=== PATIENT | male | born 1980 | race Caucasian/White ===

== ENCOUNTER 2022-09-05 16:25 | Emergency (ER) | payer MEDICAID, SELFPAY ==
[2022-09-05 16:26] VITALS: BP 107/74; PULSE 97; RESP 17; TEMP 36.4; O2SAT 97; BMI 27.8
[2022-09-05 16:29] VITALS: PULSE 119; O2SAT 97
--- NOTE | 2022-09-05 16:31 | HMH.EDSKAF ---
Discharge Plan Disposition Patient Disposition: Home, Self-Care Prescriptions Prescriptions: New clindamycin HCl 150 mg capsule 150 mg PO Q8H 7 Days Qty: 21 0RF No Action divalproex 500 mg tablet,delayed release (DR/EC) 500 mg PO BID cholecalciferol (vitamin D3) 25 mcg (1,000 unit) capsule 25 mcg PO DAILY atorvastatin 10 mg tablet 10 mg PO DAILY benztropine 1 mg tablet 1 mg PO DAILY risperidone 0.5 mg tablet 0.5 mg PO DAILY haloperidol 10 mg tablet 10 mg PO DAILY Clinical Impressions Clinical Impression: Abscess of axilla, right Discharge ED Provider: Dio Howard Skin/Abscess/FB HPI General Stated complaint: abscess to armpit Time Seen by Provider: 09/05/22 16:27 History of Present Illness HPI narrative: 41-year-old male presents with right axilla draining abscess. The patient reports has been present for about 3 to 4 days and is now started draining. He has had these before but this is the worst he has ever had. Patient lists codeine is his only medical allergy Related Data Home Medications Medication Instructions Recorded Confirmed atorvastatin 10 mg tablet 10 mg PO DAILY 12/14/21 12/14/21 benztropine 1 mg tablet 1 mg PO DAILY 12/14/21 12/14/21 cholecalciferol (vitamin D3) 25 25 mcg PO DAILY 12/14/21 12/14/21 mcg (1,000 unit) capsule divalproex 500 mg tablet,delayed 500 mg PO BID 12/14/21 12/14/21 release haloperidol 10 mg tablet 10 mg PO DAILY 12/14/21 12/14/21 risperidone 0.5 mg tablet 0.5 mg PO DAILY 12/14/21 12/14/21 Previous Rx's Medication Instructions Recorded clindamycin HCl 150 mg capsule 150 mg PO Q8H 7 days #21 caps 09/05/22 Allergies Allergy/AdvReac Type Severity Reaction Status Date / Time codeine Allergy Unknown Verified 12/14/21 11:02 Fish Containing Products Allergy Unknown Verified 12/14/21 11:02 nickel Allergy Unknown Verified 12/14/21 11:02 [facility] Disclaimer: The information contained in this section may have been updated after the patient was seen, as this information can be updated by other users. Social History Smoking Status: Current every day smoker alcohol intake: never substance use type: denies use current occupational status: other Travel in the last 8 weeks: None housing: assisted living facility ROS Obtained: Yes All systems reviewed & no additional complaints except as documented Physical Exam General General appearance: alert and in no apparent distress Head Head exam: atraumatic and normocephalic Eye Eye exam: Present normal appearance ENT ENT exam: Present normal exam Chest Chest inspection: Present normal inspection Respiratory Respiratory exam: Present normal lung sounds bilaterally Cardiovascular Cardiovascular exam: Present normal rhythm Abdominal Exam Abdominal exam: Present soft and distention Extremities Exam Extremities exam: Present normal inspection Neurological Exam Neurological exam: Present alert, oriented X3 and CN II-XII intact Expanded Skin Exam Type of lesion: Present abscess Distribution: RUE Body image: 1. Abscess Lymphatic Lymphatic Findings: no adenopathy Medical Decision Making Medical Records MR Comment: 41-year-old male presents with a right axillary abscess. He has had these in the past but this is clearly the worst he has had according to his history. We have obtained a wound culture but otherwise he looks healthy. Differential would include hidradenitis suppurativa and MRSA. Empirically we will give him 1 g of Rocephin IM and will follow up with clindamycin 150 p.o. 3 times daily x7 days. We have recommended that he follow back up with his primary care provider within 1 week. The patient reports that he can get a prescription if it is found into the pharmacy. [facility]ar Inquiry Pt receiving controlled substance: No Richar was queried for this patient: No Orders (Tests/Meds)
--- NOTE | 2022-09-05 17:44 | PC.NURSE ---
Called report to Dana Donaldson
--- NOTE | 2022-09-05 17:47 | PC.NURSE ---
[facility] reports they will send pts ride up to get him.
[2022-09-05 17:49] VITALS: BP 116/73; PULSE 92; RESP 20; O2SAT 99
[2022-09-05 17:50] VITALS: BP 116/73; PULSE 92; RESP 18; TEMP 36.7; O2SAT 99
== END 2022-09-05 17:52 | disposition home or self-care (01) ==
LOC: ER 16:38
PROVIDERS: Emergency Provider Emergency Medicine
DX: L02.411 Cutaneous abscess of right axilla (principal); F17.200 Nicotine dependence, unspecified, uncomplicated
CPT/HCPCS: 87070; 87077; 87186; 87205; 90471; 96372; 96374; 99283; 99284; J0696

== ENCOUNTER 2023-04-27 00:01 | Emergency (ER) | payer MEDICAID, SELFPAY ==
[2023-04-27 00:01] VITALS: BP 121/73; PULSE 105; RESP 18; TEMP 37.1; O2SAT 95; BMI 24.7
--- NOTE | 2023-04-27 00:03 | HMH.EDGENADL ---
Discharge Plan Disposition Patient Disposition: Home, Self-Care Prescriptions Prescriptions: No Action divalproex 500 mg tablet,delayed release (DR/EC) 500 mg PO BID cholecalciferol (vitamin D3) 25 mcg (1,000 unit) capsule 25 mcg PO DAILY atorvastatin 10 mg tablet 10 mg PO DAILY benztropine 1 mg tablet 1 mg PO DAILY risperidone 0.5 mg tablet 0.5 mg PO DAILY haloperidol 10 mg tablet 10 mg PO DAILY clindamycin HCl 150 mg capsule 300 mg PO TID 7 Days Qty: 42 0RF Activity Restrictions/Add. Instructions Additional Instructions/Restrictions: Continue to take antibiotics as previously prescribed. Please keep wound covered and change bandage at least once daily. Please shower daily and use soap and water. Clinical Impressions Clinical Impression: Open wound of thigh Qualifiers: Encounter type: initial encounter Laterality: left Qualified Code(s): S71.102A - Unspecified open wound, left thigh, initial encounter Instructions Patient Instructions: DI for Skin Abscess Discharge ED Provider: Daniel Olivo General Adult HPI General Chief complaint: Skin/Abscess/Foreign Body Stated complaint: Skin Issue Time Seen by Provider: 04/27/23 00:03 History of Present Illness HPI narrative: 42-year-old male, resident at [facility], history of psychiatric comorbidities presents with worsening left inner thigh pain. He reports that he has a wound/boil that he is on antibiotics for. He is unsure which antibiotics they are, but reports they are 2 of them. He has been taking these medications for the last couple of days. He takes nothing at home for pain. He reports that he is having a worsening burning sensation in the area. He denies any fever at home. Denies any purulent discharge. Denies any other medical conditions. Related Data Home Medications Medication Instructions Recorded Confirmed atorvastatin 10 mg tablet 10 mg PO DAILY 12/14/21 12/14/21 benztropine 1 mg tablet 1 mg PO DAILY 12/14/21 12/14/21 cholecalciferol (vitamin D3) 25 25 mcg PO DAILY 12/14/21 12/14/21 mcg (1,000 unit) capsule divalproex 500 mg tablet,delayed 500 mg PO BID 12/14/21 12/14/21 release haloperidol 10 mg tablet 10 mg PO DAILY 12/14/21 12/14/21 risperidone 0.5 mg tablet 0.5 mg PO DAILY 12/14/21 12/14/21 Previous Rx's Medication Instructions Recorded clindamycin HCl 150 mg capsule 300 mg PO TID 7 days #42 caps 04/23/23 Allergies Allergy/AdvReac Type Severity Reaction Status Date / Time codeine Allergy Unknown Verified 12/14/21 11:02 Fish Containing Products Allergy Unknown Verified 12/14/21 11:02 nickel Allergy Unknown Verified 12/14/21 11:02 [facility] Disclaimer: The information contained in this section may have been updated after the patient was seen, as this information can be updated by other users. Social History Smoking Status: Current every day smoker alcohol intake: never substance use type: denies use current occupational status: other Travel in the last 8 weeks: None housing: assisted living facility ROS Obtained: Yes All systems reviewed & no additional complaints except as documented Physical Exam General General appearance: alert and in no apparent distress Head Head exam: atraumatic and normocephalic Eye Eye exam: Present normal appearance, PERRL and EOMI ENT ENT exam: Present normal oropharynx and normal external ear exam Neck Neck exam: Present normal inspection and full ROM Chest Chest inspection: Present normal inspection and symmetric chest wall rise; Absent tenderness Respiratory Respiratory exam: Present normal lung sounds bilaterally; Absent respiratory distress Cardiovascular Cardiovascular exam: Present regular rate and normal rhythm Abdominal Exam Abdominal exam: Present soft; Absent distention, tenderness or guarding Extremities Exam Extremities exam: Present other (Left in
[2023-04-27 00:34] VITALS: BP 121/73; PULSE 100; RESP 18; TEMP 37.1; O2SAT 95
--- NOTE | 2023-04-27 00:36 | PC.NURSE ---
patient waiting for ride from [facility]
== END 2023-04-27 00:38 | disposition home or self-care (01) ==
PROVIDERS: Emergency Provider Emergency Medicine
DX: S71.102A Unspecified open wound, left thigh, initial encounter (principal); M79.652 Pain in left thigh; F17.200 Nicotine dependence, unspecified, uncomplicated; X58.XXXA Exposure to other specified factors, initial encounter
CPT/HCPCS: 99283